=== PATIENT | male | born 1955 | race Caucasian/White ===

== ENCOUNTER → 2023-03-10 | Outpatient (CLI) | payer OTHER, SELFPAY ==
[2023-03-10 09:33] LABS: Color, Urine Yellow (Yellow); Glucose, Dipstick Normal (Normal); Ketone-Dipstick Negative (Negative); Leukocyte Esterase-Dipstick 25 /ul (Negative); Nitrite-Dipstick Negative (Negative); Occult Blood-Urine 25 /ul (Negative); Protein-Dipstick 15 mg/dl (Negative); Specific Gravity, Urine 1.015 (1.002-1.030); Urine Bilirubin Dipstick Negative (Negative); Urine Clarity Clear (Clear); Urine Urobilinogen Normal (Normal)
[2023-03-10 09:42] LABS: Bacteria RARE /hpf (None Seen); Calcium Oxalate Crystals Ur RARE /hpf (<or=2+); Mucous, Urine 1+ /hpf (<or=2+); Red Blood Cells-Urine 0-5 SEEN /hpf (0-5); Squamous Epithelial Cells - UA 0-5 SEEN /hpf (0-5); White Blood Cells 0-5 SEEN /hpf (0-5)
--- NOTE | 2023-03-11 09:19 | PFT ---
INTRODUCTION: The patient is a 68-year-old male who presents for pulmonary function studies secondary to a diagnosis of chronic tobacco dependency. Respiratory therapy reported good patient effort. Bronchodilators were used during testing. INTERPRETATION: Forced expiration spirometry demonstrates the presence of a moderate large airways obstructive ventilatory defect. There was a significant response to aerosolized bronchodilators. Spirograms are of good quality and plateau gradually indicating slow emptying of the lungs. Body plethysmography was performed and demonstrated evidence of hyperinflation and air trapping. Diffusing capacity by single breath CO was within normal limits. IMPRESSION: Partially reversible moderate large airways obstructive ventilatory defect with associated hyperinflation and air trapping.
== END | disposition home or self-care (01) ==
PROVIDERS: PCP Physician Assistant; Referring Provider Physician Assistant; Visit Provider Physician Assistant
DX: R31.9 Hematuria, unspecified (principal); Z72.0 Tobacco use
CPT/HCPCS: 81001; 87086; 87088; 94060; 94726; 94729

== ENCOUNTER → 2024-07-13 | Outpatient (CLI) | payer OTHER, SELFPAY ==
--- NOTE | 2024-07-13 | MASS_PTH ---
PATIENT: AI RAMOS LOC: [facility] U#:[id number] AGE/SX: 69/M ROOM: RE07/13/[address]: Dr. Huey Mooer MD : 1955 BED: DIS: 07/13/2024 SPEC #: [id number] RECD: 07/16/24 07:57 STATUS: ONIEL LILI #: [id number] JARROD: 07/13/24 00:[address]: Huey Moore DEPT: SURGICAL PATHOLOGY RECD BY: Alberto Munson ENTERED: 07/16/24 07:57 SP TYPE: Mass OTHR DR: SANTIAGO Mejias Tissues: Finger, NOS Procedures: Surgery Specimen Level IV HEADER OPERATION: Left small finger cyst excision PRE-OP DIAGNOSIS: Left small finger mass TISSUE SUBMITTED: Left small finger MICROSCOPIC DIAGNOSIS Left small finger lesion, excision: Ruptured epidermal inclusion cyst with focal foreign body giant cell reaction. SJ.mr 07/17/2024 MICROSCOPIC DESCRIPTION Slides are reviewed. GROSS DESCRIPTION Received in fixative is one container labeled with the patient's name and designated Left small finger cyst. The specimen consists of portions of white soft tissue. The smaller portions of tissue measures in aggregate 1.0 x 0.5 x 0.1cm. Also present in the container is a larger portion of white nodular tissue measuring 1.5 x 1.0 x 0.5cm. The entire specimen is submitted in one cassette. 07/16/2024 TC:5 CPT:13681
== END | disposition home or self-care (01) ==
PROVIDERS: PCP Physician Assistant; Referring Provider Orthopaedic Surgery; Visit Provider Orthopaedic Surgery
DX: L72.0 Epidermal cyst (principal)
CPT/HCPCS: 88305